=== PATIENT | male | born 1985 | race Two or more races ===

== ENCOUNTER 2017-08-15 23:29 | Emergency (ER) | payer SELFPAY ==
[~2017-08-15] VITALS: Ht 177.8 cm; Wt 81.6 kg
[2017-08-15 23:30] VITALS: BP 122/73
[2017-08-15] MEDS ORDERED: diphenhydrAMINE HCL 50 MG/ML VIAL IM STA (23:47)
[2017-08-15] MEDS ORDERED: diphenhydrAMINE HCL 50 MG/ML VIAL ONE (23:57)
[2017-08-16] MEDS ORDERED: diphenhydrAMINE HCL 25 MG CAPSULE PO STA (00:07)
== END 2017-08-16 00:26 | disposition home or self-care (01) ==
LOC: ER 23:32
DX: L50.0 Allergic urticaria (principal)
CPT/HCPCS: 99282; A4606; Z7610; J1200